=== PATIENT | male | born 2000 | race Hispanic/Latino ===

== ENCOUNTER → 2019-11-08 12:52 | Outpatient (REF) | payer BC, SELFPAY | LOC: ANHLAB 12:52 | PROVIDERS: PCP Nurse Practitioner; Visit Provider Surgery Plastic and Reconstructive Surgery | DX: L72.0 Epidermal cyst (principal) | CPT/HCPCS: 88304 ==

== ENCOUNTER 2021-07-25 12:14 | Emergency (ER) | payer BC, SELFPAY ==
--- NOTE | ~2021-07-25 | XR_ITS ---
XR shoulder RT min 2V 07/25/2021 12:56 INDICATION: Right shoulder pain PROCEDURE: 4 views right shoulder COMPARISON: No prior studies for comparison. FINDINGS: Fracture, dislocation or subluxation is not identified. The soft tissues appear within norm al limits. No foreign bodies are identified. IMPRESSION: 1: NO ACUTE BONE OR JOINT ABNORMALITY IDENTIFIED. Reviewed, dictated and finalized at location B.
--- NOTE | ~2021-07-25 | XR_ITS ---
EXAMINATION: XR elbow RT min 3V DATE: 07/25/2021 12:56 INDICATION: Right elbow injury and pain. TECHNIQUE: 4 views of right elbow were obtained. COMPARISON: None. FINDINGS: Bone alignment is normal. No fracture. Joint spaces are well maintained. There is no elbow joint effusion. IMPRESSION: 1. Normal right elbow. Reviewed, dictated and finalized at location A. IMPRESSION: 1. Normal right elbow.
[2021-07-25 12:24] VITALS: BP 118/69; PULSE 65; RESP 19; TEMP 36.8; O2SAT 100
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
[2021-07-25] MEDS: TETANUS,DIPHTHERIA,AC PERTUSSIS ADULT (0.5 ML) BOOSTRIX IM (12:58)
[2021-07-25] MEDS: HYDROcodone/acetaminophen (*CRX) 5-325 MG TABLET 1 TAB PO (13:01)
[2021-07-25] MEDS: IBUPROFEN 400 MG TABLET 800 MG PO (13:01)
[2021-07-25 14:50] VITALS: BP 110/72; PULSE 56; RESP 12; O2SAT 98
== END 2021-07-25 14:51 | disposition home or self-care (01) ==
PROVIDERS: Emergency Provider General Practice; PCP Internal Medicine
DX: S50.01XA Contusion of right elbow, initial encounter (principal); G56.21 Lesion of ulnar nerve, right upper limb; Z23 Encounter for immunization; K21.9 Gastro-esophageal reflux disease without esophagitis; J45.990 Exercise induced bronchospasm; V86.65XA Passenger of 3- or 4- wheeled all-terrain vehicle (ATV) injured in nontraffic accident, initial encounter
CPT/HCPCS: 73030; 73080; 90471; 90715; 99283; A4565; A9270

== ENCOUNTER 2021-08-13 09:24 | Outpatient (CLI) | payer BC, SELFPAY ==
--- NOTE | ~2021-08-13 | MR_ITS ---
EXAMINATION: MR elbow RT w con DATE: 08/13/2021 10:51 INDICATION: Right elbow pain. TECHNIQUE: Magnetic resonance imaging (MRI) of the right elbow was performed without intravenous cont rast after intra-articular injection of contrast (MR arthrogram). Sequences included axial T1-weighte d FS FSE, T1-weighted FSE, and T2-weighted FS FSE, coronal PD-weighted FSE and T1-weighted FS FSE, an d sagittal T2-weighted FS FSE and T1-weighted FS FSE. COMPARISON: Right elbow radiographs 07/25/2021 FINDINGS: Osseous/other: Bone alignment is normal. No fracture. There is bone marrow edema in the olecranon and medial humeral epicondyle. The elbow joint cartilage is normal. Tendons: Biceps tendon, brachialis tendon, and common flexor and common extensor tendons are normal. Ligaments: Medial collateral ligament, lateral ulnar collateral ligament, and ulnar collateral ligament are norm al. Cubital tunnel: There is increased signal in ulnar nerve, consistent with neuropathy. There is edema of the surroundi ng soft tissues. Fluid: The elbow joint is well distended by contrast. IMPRESSION: 1. Bone marrow edema of olecranon and medial humeral epicondyle, consistent with contusions. 2. Ulnar neuropathy. Correlate with history and physical exam to determine the significance of this f inding. Reviewed, dictated and finalized at location A. COILING MACHINE OPERATOR IMPRESSION: 1. Bone marrow edema of olecranon and medial humeral epicondyle, consistent wit h contusions. 2. Ulnar neuropathy. Correlate with history and physical exam to determine the significance of this finding.
--- NOTE | ~2021-08-13 | XR_ITS ---
EXAMINATION: XR fl inj elbow RT for MR/CT DATE: 08/13/2021 10:23 INDICATION: Right elbow pain. TECHNIQUE: A time-out was performed to verify the patient's name, date of , and procedure to b e performed. The procedure including the risks, benefits, and alternatives was discussed with the pat ient. Risks discussed included bleeding and infection. The patient understood the risks and agreed to proceed. The skin overlying the right elbow joint was prepped and draped in usual sterile fashion. Anesthetic was administered with 1% lidocaine subcutaneously. A 23 G needle was advanced under fluor oscopic guidance into the joint. Subsequently, injectate consisting of 4 mL of 1:200 Multihance, 1:4 1% lidocaine, and 1:4 Omnipaque 240 was instilled. The needle was removed and the entry site was cl eaned and dressed. There were no immediate complications. Fluoroscopy exposure time was 0.0 minutes. The total number of images was 3. FINDINGS: Real-time fluoroscopy demonstrates the needle and contrast in the right elbow joint. IMPRESSION: 1. Successful right elbow joint injection of contrast for subsequent MR arthrography. Reviewed, dictated and finalized at location A. DE SALES PERSON IMPRESSION: 1. Successful right elbow joint injection of contrast for subsequent MR arthrog enio.
== END 2021-08-13 09:25 | disposition home or self-care (01) ==
PROVIDERS: PCP Internal Medicine; Visit Provider Orthopaedic Surgery
DX: M25.521 Pain in right elbow (principal); G56.21 Lesion of ulnar nerve, right upper limb
CPT/HCPCS: 20605; 73222; 77002; A9577; Q9966

== ENCOUNTER 2023-08-21 11:38 | Emergency (ER) | payer BC, SELFPAY ==
--- NOTE | ~2023-08-21 | CT_ITS ---
EXAMINATION: CT shoulder RT wo con DATE: 08/21/2023 13:33 INDICATION: Right shoulder pain. Fall. TECHNIQUE: Computed tomography (CT) of the right shoulder was performed without intravenous contrast. Automated exposure control and iterative reconstruction technique were employed. The dose-length pro duct was 583.14 mGy-cm. COMPARISON: Right shoulder radiographs 08/21/2023 FINDINGS: Bone alignment is normal. No fracture. Joint spaces are normal. IMPRESSION: 1. Normal right shoulder. Reviewed, dictated and finalized at location A. ER REPAIRER IMPRESSION: 1. Normal right shoulder.
--- NOTE | ~2023-08-21 | CT_ITS ---
EXAMINATION: CT brain wo con DATE: 08/21/2023 13:33 INDICATION: Fall. TECHNIQUE: Computed tomography (CT) of the head was performed without intravenous contrast. The mA wa s adjusted according to patient size. Iterative reconstruction technique was employed. The dose-lengt h product was 605.33 mGy-cm. COMPARISON: None FINDINGS: There is no intracranial hemorrhage, acute infarction, or abnormal intracranial mass lesion . The ventricles are normal in size. The orbits are normal. There is mucosal thickening in the parana marisa sinuses. The mastoid air cells are normal. IMPRESSION: 1. Normal brain. Reviewed, dictated and finalized at location A. L OPPORTUNITY REPRESENTATIVE IMPRESSION: 1. Normal brain.
--- NOTE | ~2023-08-21 | XR_ITS ---
EXAMINATION: XR shoulder RT min 2V DATE: 08/21/2023 12:08 INDICATION: Right shoulder pain. Fall. TECHNIQUE: 4 views of right shoulder were obtained. COMPARISON: Right shoulder radiographs 07/25/2021 FINDINGS: Bone alignment is normal. No fracture. Joint spaces are normal. IMPRESSION: 1. Normal right shoulder. Reviewed, dictated and finalized at location A. IVING INSPECTOR IMPRESSION: 1. Normal right shoulder.
--- NOTE | ~2023-08-21 | CT_ITS ---
EXAMINATION: CT cervical spine wo con DATE: 08/21/2023 13:33 INDICATION: Head injury. Fall. TECHNIQUE: Computed tomography (CT) of the cervical spine was performed without intravenous contrast. Automated exposure control and iterative reconstruction technique were employed. The dose-length pro duct was 494.23 mGy-cm. COMPARISON: None FINDINGS: Bone alignment is normal. Vertebral body heights and intervertebral disc heights are normal . At C7-T1, there is mild bilateral facet joint osteoarthritis. No neural foraminal stenosis or centr al canal stenosis. IMPRESSION: 1. No fracture. Reviewed, dictated and finalized at location A. ER FUSER IMPRESSION: 1. No fracture.
[2023-08-21 11:39] VITALS: BP 139/78; PULSE 89; RESP 16; TEMP 35.9; O2SAT 98
--- NOTE | 2023-08-21 11:49 | PC.NURSE ---
Pts mother reports pt is nauseous. Pt is only complaining of R arm pain at this time.
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
[2023-08-21] MEDS: ONDANSETRON INJ 4 MG/2 ML VIAL IV PUSH (13:03)
[2023-08-21] MEDS: HYDROmorphone HCL INJ (*CRX) 1 MG/ML SYR 0.5 MG IV PUSH (13:03)
== END 2023-08-21 14:31 | disposition home or self-care (01) ==
PROVIDERS: Emergency Provider Emergency Medicine; PCP Internal Medicine
DX: S46.001A Unspecified injury of muscle(s) and tendon(s) of the rotator cuff of right shoulder, initial encounter (principal); J45.990 Exercise induced bronchospasm; K21.9 Gastro-esophageal reflux disease without esophagitis; W18.39XA Other fall on same level, initial encounter
CPT/HCPCS: 70450; 72125; 73030; 73200; 96374; 96375; 99284; J1170; J2405

== ENCOUNTER → 2023-09-03 13:24 | Outpatient (CLI) | payer BC, SELFPAY ==
--- NOTE | ~2023-09-03 | MR_ITS ---
EXAMINATION: MR shoulder RT wo con DATE: 09/03/2023 14:46 INDICATION: Right shoulder pain and limited range of motion post fall into shoulders 2 weeks prior TECHNIQUE: Magnetic resonance imaging (MRI) of the right shoulder was performed without intravenous c ontrast. Sequences included axial PD-weighted FS FSE, coronal oblique PD-weighted FS FSE, coronal obl ique T2-weighted FS FSE, sagittal PD-weighted FS FSE, and sagittal T1-weighted SE. COMPARISON: None. FINDINGS: Coracoacromial arch: The acromion undersurface is flat in morphology (type I). The coracoacromial ligament is normal. Mild acromioclavicular osteoarthritis. Rotator cuff: The supraspinatus, infraspinatus and teres minor tendons are normal. The subscapularis tendon is norm al. No asymmetric rotator cuff muscle atrophy. There is mild increased fluid signal along the deep ma rgin of the infraspinatus muscle belly overlying the posterior aspect of the humeral head which could be related to low-grade muscle strain or contusion given the history of fall onto the shoulder. Biceps tendon, glenoid labrum and glenohumeral cartilage: Long head of the biceps tendon is normal. Glenoid labrum is normal. Glenohumeral cartilage is normal. Fluid: Physiologic amount of fluid in the glenohumeral joint and biceps tendon sheath. No loose osteochondr al bodies. No abnormal fluid signal in the subacromial/subdeltoid bursa to suggest bursitis. Bones/other: Normal marrow signal with no edema, fracture or abnormal marrow replacing process. There is mild foc al edema in the medial head of the deltoid muscle belly along the lateral margin of the acromion whic h given the history of trauma would favor a muscle contusion over low-grade muscle strain. IMPRESSION: 1. Mild increased fluid signal along the deep margin of the infraspinatus muscle belly overlying the posterior humeral head and in the medial head of the deltoid muscle belly along the lateral margin of the acromion and would favor muscle contusions related to direct blunt trauma over muscle strains gi shruti the history of fall onto the right shoulder. Reviewed, dictated and finalized at location A. IERS BUSSERS FOOD RUNNERS IMPRESSION: 1. Mild increased fluid signal along the deep margin of the infraspinatus muscl e belly overlying the posterior humeral head and in the medial head of the delt oid muscle belly along the lateral margin of the acromion and would favor muscl e contusions related to direct blunt trauma over muscle strains given the histo ry of fall onto the right shoulder.
== END ==
PROVIDERS: PCP Internal Medicine; Visit Provider Nurse Practitioner Family
DX: M25.511 Pain in right shoulder (principal)
CPT/HCPCS: 73221

== ENCOUNTER 2024-02-28 11:25 | Emergency (ER) | payer BC, SELFPAY ==
[2024-02-28 11:33] VITALS: BP 126/76; PULSE 50; RESP 16; TEMP 35.6; O2SAT 99
--- NOTE | 2024-02-28 11:45 | ED.SKABFB ---
HPI - Skin/Abscess/Foreign Bdy General Chief complaint: Skin/Abscess/Foreign Body Stated complaint: Rash Source: patient Mode of arrival: ambulatory Limitations: no limitations History of Present Illness HPI narrative: 23-year-old male presented for complaint of poison justin rash to arms and legs over the past several days. He endorses new eruptions daily. Has been applying calamine lotion. Denies lip, tongue, or throat swelling, shortness of breath or wheezing. Denies changes to soap, detergent, lotion, or any other exposures. No one else in the house or any contacts with similar symptoms. Related Data Home Medications Medication Instructions Recorded Confirmed isotretinoin 40 mg capsule 40 mg PO DAILY 10/15/23 02/28/24 (Amnesteem) triamcinolone acetonide 0.1 % See Rx Instructions .Route .COMPLEX 02/28/24 02/28/24 topical ointment Allergies Allergy/AdvReac Type Severity Reaction Status Date / Time No Known Allergies Allergy Verified 02/28/24 11:37 Review of Systems Review of Systems: CONSTITUTIONAL: Denies body aches, fever, chills, or sweats. EYES: Denies visual changes, redness, or discharge. ENT: Denies rhinorrhea, congestion CARDIOVASCULAR: Denies chest pain, palpitations, or edema. RESPIRATORY: Denies cough or dyspnea. GASTROINTESTINAL: Denies abdominal pain, nausea, vomiting, or diarrhea. SKIN: reports rash MUSCULOSKELETAL: Denies back pain, joint pain, or myalgia. NEUROLOGIC: Denies headache, numbness, tingling, or weakness. [facility] Past Medical History Medical History Acne Exercise-induced asthma GERD (gastroesophageal reflux disease) Heartburn Surgical History Surgical History H/O removal of cyst 2016, 2018 History of appendectomy 2011 Family History Family History Father Hypertension High cholesterol Mother Asthma Grandparent Kidney disease Social History Social History Smoking status: Never smoker Alcohol intake: never Substance use: never Lack of Transportation: No Lack of Food: Never True Current Housing: I Have Housing Concerned About Future Housing: No Difficulty Paying Gas/Electric Bills: No Difficulty Paying for Meds: No Currently Unemployed: No Difficulty w/ Childcare or Family Care: No Living arrangements: with family Gender identity (if verbalized by the patient): Male Comments At time of signature, I have reviewed and agree with nursing past medical, surgical, social and family history unless otherwise noted. Please see nursing chart for further information. There is no relevant family history pertinent to the presenting complaint Exam Narrative: GENERAL: Well-appearing HEAD: Normocephalic, atraumatic. EYES: conjunctivae clear, and EOMI. ENT: Mucous membranes moist. Oropharynx without edema, erythema or lesions. NECK: Supple. No lymphadenopathy CHEST: Clear to auscultation. HEART: Regular rate and rhythm. SKIN: Warm, dry. scattered vesicles on erythematous base over arms and legs consistent with contact dermatitis. NEURO: Alert and oriented x3. Course Course Emergency Course: Patient is aware of diagnosis, understands and agrees to treatment plan. Anticipatory guidance given. Patient agrees to follow-up as directed and is aware of reasons to seek care at the emergency department. Portions of this record may have been created with voice recognition software Level of Care: Express Care Visit Vital Signs Vital signs: Vital Signs Temperature 96.1 F L 02/28/24 11:33 Pulse Rate 50 L 02/28/24 11:33 Respiratory Rate 16 02/28/24 11:33 Blood Pressure 126/76 02/28/24 11:33 Pulse Oximetry 99 02/28/24 11:33 Oxygen Delivery Room Air 02/28/24 11:33 Temperature 96.1 F
== END 2024-02-28 11:58 | disposition home or self-care (01) ==
PROVIDERS: Emergency Provider Nurse Practitioner Family; PCP Internal Medicine
DX: L25.9 Unspecified contact dermatitis, unspecified cause (principal); J45.990 Exercise induced bronchospasm; K21.9 Gastro-esophageal reflux disease without esophagitis; R12 Heartburn
CPT/HCPCS: 99213; G0463